=== PATIENT | male | born 1970 | race African-American/Black ===

== ENCOUNTER 2020-06-07 08:19 | Day surgery (SDC) | payer BC ==
[2020-06-05 09:18] VITALS: BMI 35.4
[2020-06-07 10:54] VITALS: TEMP 98.1
[2020-06-07 11:02] VITALS: BP 132/78; PULSE 61
--- NOTE | 2020-06-10 19:49 | PATH ---
Surgical Pathology Report Patient Name: [facility]. Rec. #: [id number] /Age/Gender: 1970 (Age: 49) / M Account: [id number] Location: [facility]-ENDOSCOPY Taken: 06/07/2020 Received: 06/07/2020 Reported: 06/10/2020 Physicians: Jarred Sinha M.D. Specimen(s) Received A: DUODENUM B: STOMACH NODULE C: STOMACH D: ESOPHAGUS E: MID ESOPHAGUS F: CECAL POLYP Clinical History Reflux, history of polyps Postoperative diagnosis: Esophagitis, gastric nodule, cecal polyp, hemorrhoids Final Diagnosis A. DUODENUM, BIOPSY: DUODENAL MUCOSA WITHOUT SIGNIFICANT PATHOLOGIC FINDINGS. B. STOMACH NODULE, BIOPSY: POLYPOID GASTRIC MUCOSA WITH MILD CHRONIC GASTRITIS. IMMUNOHISTOCHEMICAL STAIN FOR H. PYLORI IS NEGATIVE. C. STOMACH, BIOPSY: GASTRIC BODY MUCOSA WITH MILD CHRONIC GASTRITIS. IMMUNOHISTOCHEMICAL STAIN FOR H. PYLORI IS NEGATIVE. D. ESOPHAGUS, BIOPSY: SQUAMOUS MUCOSA WITH BASAL CELL HYPERPLASIA CONSISTENT WITH SEVERE REFLUX TYPE ESOPHAGITIS AND FOCAL PARAKERATOSIS. PAS FUNGAL STAIN IS NEGATIVE. E. MID ESOPHAGUS, BIOPSY: SQUAMOUS MUCOSA WITH BASAL CELL HYPERPLASIA, SEVERE CHRONIC AND FOCAL ACUTE INFLAMMATION INCLUDING PROMINENT LYMPHOID AGGREGATES, CONSISTENT WITH SEVERE REFLUX TYPE ESOPHAGITIS. PAS FUNGAL STAIN IS NEGATIVE. F. CECAL POLYP, POLYPECTOMY: TUBULAR ADENOMA. Positive and negative controls (internal if applicable) show appropriate results. Electronically Signed Mena Gonzalez M.D. Gross Description A. Received in formalin, labeled "duodenum biopsy" are 2 conley, irregular portions of soft tissue measuring 0.1 and 0.4 cm. in greatest dimension. The specimens are submitted in toto in one cassette. B. Received in formalin, labeled "stomach nodule biopsy" is a conley, irregular portion of soft tissue measuring 0.3 cm. in greatest dimension. The specimen is submitted in toto in one cassette. C. Received in formalin, labeled "stomach biopsy" are 2 conley, irregular portions of soft tissue measuring 0.1 and 0.4 cm. in greatest dimension. The specimens are submitted in toto in one cassette. D. Received in formalin, labeled "esophagus biopsy" are 2 conley, irregular portions of soft tissue averaging 0.3 cm. in greatest dimension. The specimens are submitted in toto in one cassette. E. Received in formalin, labeled "mid esophagus biopsy" is a conley, irregular portion of soft tissue measuring 0.4 cm. in greatest dimension. The specimen is submitted in toto in one cassette. F. Received in formalin, labeled "cecum polyp" is a conley, irregular portion of soft tissue measuring 0.8 cm. in greatest dimension. The specimen is submitted in toto in one cassette. 06/07/2020 [facility]06/07/2020
== END 2020-06-07 10:40 | disposition home or self-care (01) ==
LOC: JASU-ENDO 08:19
PROVIDERS: ATTEND Internal Medicine Gastroenterology
PROC: 0DB98ZX Excision of Duodenum, Via Natural or Artificial Opening Endoscopic, Diagnostic (ICD-10-PCS; 2020-06-07)
PROC: 0DB68ZX Excision of Stomach, Via Natural or Artificial Opening Endoscopic, Diagnostic (ICD-10-PCS; 2020-06-07)
PROC: 0DB28ZX Excision of Middle Esophagus, Via Natural or Artificial Opening Endoscopic, Diagnostic (ICD-10-PCS; 2020-06-07)
PROC: 0DB38ZX Excision of Lower Esophagus, Via Natural or Artificial Opening Endoscopic, Diagnostic (ICD-10-PCS; 2020-06-07)
PROC: 0DB48ZX Excision of Esophagogastric Junction, Via Natural or Artificial Opening Endoscopic, Diagnostic (ICD-10-PCS; 2020-06-07)
PROC: 0DBH8ZX Excision of Cecum, Via Natural or Artificial Opening Endoscopic, Diagnostic (ICD-10-PCS; principal; 2020-06-07 09:30)
DX: Z86.010 Personal history of colon polyps (principal); D12.0 Benign neoplasm of cecum; K64.8 Other hemorrhoids; K20.9 Esophagitis, unspecified; K31.7 Polyp of stomach and duodenum; K29.50 Unspecified chronic gastritis without bleeding
CPT/HCPCS: 88305-TC; 88312-TC; 88342-TC